=== PATIENT | female | born 1945 | race Hispanic/Latino ===

== ENCOUNTER 2018-07-12 05:00 | Observation (INO) | payer MEDICARE ==
--- NOTE | 2018-07-09 16:31 | Diagnostic Imaging Report ---
EXAMINATION: PA and lateral views of the chest. COMPARISON: None CLINICAL HISTORY: Preadmission, knee surgery DISCUSSION: Lines/tubes: None. Lungs: The lungs are well inflated and clear. No pneumonia or pulmonary edema. Pleura: No pleural effusion or pneumothorax. Heart and mediastinum: The cardiomediastinal silhouette is normal. Bones and soft tissues: No acute bony abnormalities. IMPRESSION: No acute cardiopulmonary abnormalities. Signed by: Dr. Jose Pardo M.D. on 07/09/2018 4:28 PM
[~2018-07-12] VITALS: Ht 157.5 cm; Wt 92.5 kg
[~2018-07-12 05:00] MED LIST: CIPRO500 MG PO; DICLOFENAC SODI50 MG PO; GABAPENTIN300 MG PO; LEVOTHYROXINE50 MCG PO; LISINOPRIL-HCT1 EAC2 PO; LOVASTATIN40 MG PO
--- OUTSIDE RECORDS SUMMARY | 2018-07-12 05:08 | XMS REPORT ---
Author Author [facility] Address Unknown Phone Unavailable Care Team Providers Care Financial Analysis Advisor Name Role Phone ANGI BOND Unavailable Unavailable Problems This patient has no known problems. Allergies, Adverse Reactions, Alerts This patient has no known allergies or adverse reactions. Medications This patient has no known medications. Results Test Description Test Time Test Comments Text Results Atomic Results Result Comments CHEST 2 VIEWS 2018-07-09 16:28:00 [place] [address] Patient Name: DALY RAMOS MR #: [id number] : 1945 Age/Sex: 72/F Req #: [id number] Adm Physician: Ordered by: ANGI BOND MD Report #: [id number] Location: OR Room/Bed: Procedure: [id number] DX/CHEST 2 VIEWS Exam Date: Exam Time: REPORT STATUS: Signed EXAMINATION: PA and lateral views of the chest. COMPARISON: None CLINICAL HISTORY: Preadmission, knee surgery DISCUSSION: Lines/tubes: None. Lungs: The lungs are well inflated and clear. No pneumonia or pulmonary edema. Pleura: No pleural effusion or pneumothorax. Heart and mediastinum: The cardiomediastinal silhouette is normal. Bones and soft tissues: No acute bony abnormalities. IMPRESSION: No acute cardiopulmonary abnormalities. Signed by: Dr. Socrates French M.D. on 07/09/2018 4:28 PM Dictated By: SOCRATES FRENCH MD [id number] Transcribed By: TITO on 07/09/181627 COPY TO: ANGI BOND MD
[2018-07-12] MEDS ORDERED: CELECOXIB 200 MG CAP ONE (05:38)
[2018-07-12] MEDS ORDERED: GABAPENTIN 300 MG CAP ONE (05:39)
[2018-07-12] MEDS ORDERED: CEFAZOLIN SOD 2 GM/D5W 50ML 50 ML IV ONE (05:39)
[2018-07-12] MEDS ORDERED: DEXAMETHASONE SOD PHOS 10 MG/1 ML VIAL ONE (05:39)
[2018-07-12] MEDS ORDERED: VANCOMYCIN HCL 1,000 MG ONE (06:20)
[2018-07-12] MEDS ORDERED: BACITRACIN 50,000 UNIT VIAL ONE (06:21)
[2018-07-12] MEDS ORDERED: TRANEXAMIC ACID 1,000 MG/10 ML ML ONE (06:21)
[2018-07-12] MEDS ORDERED: ROPIVACAINE 246.25 MG, EPINEPHRINE HCL 1:1000 1ML 0.5 MG, CLONIDINE HCL 0.08 MG, KETORO... INJ ONE ×5 (06:30)
[2018-07-12] MEDS ORDERED: SODIUM CHLORIDE 0.9% 500ML 500 ML ONE (06:40)
[2018-07-12] MEDS ORDERED: ZOLPIDEM TARTRATE 5 MG TAB PO PRN (08:30)
[2018-07-12] MEDS ORDERED: DOCUSATE SODIUM 100 MG CAP PO PRN (08:30)
[2018-07-12] MEDS ORDERED: ACETAMINOPHEN 650 MG SUPP PR PRN (08:30)
[2018-07-12] MEDS ORDERED: ONDANSETRON HCL INJ 2MG/ML 2ML 2 MG/ML VIAL IV PRN (08:30)
[2018-07-12] MEDS ORDERED: HYDROCODONE/APAP 5MG-325MG TAB PO PRN (08:30)
[2018-07-12] MEDS ORDERED: PROMETHAZINE HCL (IM) 25 MG/ML VIAL INJ PRN (08:30)
[2018-07-12] MEDS ORDERED: DIPHENHYDRAMINE HCL INJ 50 MG/ML VIAL IM/IV PRN (08:30)
[2018-07-12] MEDS: CELECOXIB 100 MG CAP PO SCH ×2 (09:00→16:49)
[2018-07-12] MEDS: ASPIRIN 325 MG TAB PO SCH ×2 (09:00→16:49)
--- NOTE | 2018-07-12 09:04 | Diagnostic Imaging Report ---
Right knee radiographs-2 views History: Post operative radiographs. Findings: Status post right total knee arthroplasty and patellar resurfacing with prosthetic components in anatomic alignment. Overlying soft tissue air and surgical skin eddy are present. No evidence of acute fracture. IMPRESSION: Status post right knee replacement in anatomic position. Signed by: Dr. Feliciano García MD on 07/12/2018 9:01 AM
--- NOTE | 2018-07-12 11:19 | NUR ---
Received patient from PACU at this time. Patient is awake, A&Ox3, but sleepy. Lung sounds clear, bowel sounds active. IV to L hand asymptomatic, intact, and patent. ELI hose to L leg, aniyah wrap around R leg. Foot pumps in place. Patient denies pain at this time. Patient oriented to room, call light, bed, phone. Bed locked in lowest position, 2 side rails up, call light in reach. Family members at bedside.
[2018-07-12 11:44] VITALS: BP 117/56
[2018-07-12 12:01] VITALS: BP 117/56
[2018-07-12 12:18] VITALS: BP 117/56
[2018-07-12] MEDS: ACETAMINOPHEN 1000 MG/100 ML IV SCH ×3 (12:54→23:55)
[2018-07-12] MEDS: SODIUM CHLORIDE 0.9% 1000ML 1,000 ML IV SCH ×2 (12:54→18:17)
[2018-07-12] MEDS ORDERED: CEFAZOLIN SOD 1 GM/NS 50ML 50 ML IV SCH (14:00)
--- NOTE | 2018-07-12 14:44 | NUR ---
Patient vomiting at this time and voided on herself as well. PRN antiemtic given. Patient cleansed at this time. Will continue to monitor
--- NOTE | 2018-07-12 15:43 | Operative Report ---
DATE OF PROCEDURE: 07/12/2018 SURGEON: Camacho Jin MD SHOP FOREMAN: Marcelino June, certified PA. PREOPERATIVE DIAGNOSIS: Osteoarthritis, right knee. POSTOPERATIVE DIAGNOSIS: Osteoarthritis, right knee. PROCEDURE: Right total knee arthroplasty. INDICATIONS: The patient is a 72-year-old lady with advanced osteoarthritis of the right knee. She has failed conservative management and would like to proceed with a right total knee replacement. The risks and benefits of the procedure have been discussed. She states she understands and wishes to proceed. PROCEDURE IN DETAIL: The patient was brought to the operating room and placed under general anesthetic. She received a regional block, prophylactic antibiotics and tranexamic acid in the holding area. Her right lower extremity was prepped and draped in a sterile manner. A preoperative time-out was performed. The extremity was exsanguinated and a proximal tourniquet was inflated to 300 mmHg. An anterior approach with a medial parapatellar arthrotomy was performed. Clear synovial fluid was removed from the joint. Soft tissue releases were performed to bring the knee up into flexion with the patella everted. Remnants of the cruciate ligaments were sacrificed. A Mehta and Nephew posterior stabilized legion knee system was used throughout the case. Marginal osteophytes and meniscal remnants were removed. The proximal tibia was resected using an extramedullary cutting guide. The cut was referenced off the medial compartment. The tibial base plate was a size #4. The central fin punch was impacted and the attention was directed towards the distal femur. An intramedullary cutting guide was used to resect the distal femur in 6 degrees of valgus and rotation referencing off a combination of landmarks including Austin line, the epicondylar axis and the posterior condyles. The femoral component was a size #5. The anterior and posterior cuts were made. Trial reductions were performed. A 9 mm ultracongruent tibial insert provided appropriate soft tissue balancing in full extension and 90 degrees of flexion. The patella was resurfaced with a 29 mm x 7.5 mm patellar button. The thickness was checked before and after and was right around 22 mm. Patellar tracking was noted to be concentric. The trial implants were then all removed. A 100 mL premixed pericapsular ED injection was placed into the surrounding soft tissue. The knee was thoroughly irrigated with a shower tip pulsatile lavage. The components were cemented into place using a single mix of Palacos cement preloaded with antibiotics. Care was taken to remove extravasated cement. The wound was further irrigated while the cement cured. 500 mg of vancomycin powder was sprinkled into the wound. Throughout the case as well, a mixture of diluted polymyxin and vancomycin spray was used. The arthrotomy was then closed with interrupted #1 Ethibond stitches. The knee was put through flexion and extension to ensure a secure closure. The skin was closed with subcuticular Vicryl and eddy. A sterile Aquacel bandage was then applied. The patient was extubated and transported to the recovery room in stable condition. Blood loss was minimal. All needle and sponge counts were correct. Camacho Jin MD DR/KAMERON /[id number]
--- NOTE | 2018-07-12 16:05 | NUR ---
CPM applied at this time, 50 degrees. Patient tolerated well. Patient reports some residual nausea, but does not feel like she will throw up. Emesis bag still at bedside. Told to call us if nausea increases.
[2018-07-12 16:30] VITALS: BP 102/50
[2018-07-12] MEDS: CEFAZOLIN SOD 1 GM/NS 50ML 50 ML IV SCH (16:49)
[2018-07-12] MEDS ORDERED: ONDANSETRON HCL INJ 2MG/ML 2ML 2 MG/ML VIAL ONE (17:31)
[2018-07-12] MEDS ORDERED: PROPOFOL IV EMULSION 10 MG/ML 20 ML VIAL ONE (17:31)
[2018-07-12] MEDS ORDERED: EPHEDRINE SULFATE INJ 50 MG/10 ML SYR ONE (17:31)
[2018-07-12] MEDS ORDERED: SEVOFLURANE INHAL SOLN 250 ML PEN BTL ONE (17:31)
[2018-07-12] MEDS ORDERED: LIDOCAINE HCL 2% LOCAL INJ 5 ML SDV VIAL INJ ONE (17:31)
[2018-07-12] MEDS ORDERED: DEXAMETHASONE SOD PHOS INJ 4 MG/ML VIAL ONE (17:31)
[2018-07-12] MEDS ORDERED: ROPIVACAINE 0.5% 5 MG/ML 30 ML SDV ONE (18:12)
[2018-07-12] MEDS ORDERED: LIDOCAINE 2%/ EPINEPHRINE 20ML MDV ONE (18:12)
[2018-07-12] MEDS ORDERED: MIDAZOLAM HCL 2 MG/2 ML VIAL ONE (19:12)
[2018-07-12] MEDS ORDERED: MORPHINE SULFATE INJ 10 MG/ML ONE (19:12)
[2018-07-12] MEDS ORDERED: FENTANYL CITRATE/PF 100MCG/2 ML INJ ONE (19:12)
--- NOTE | 2018-07-12 19:30 | NUR ---
Report taken fro am rn.Asessment done.no resp.distress.no pain voiced.assisted to use bed reid . pt voided .plexi pump is in place.dressing is dry and intact.bed alarm on.bed locked and in lowest position.phone and call light within reach.instructed to call for assistance as needed.
[2018-07-12 20:03] VITALS: BP 108/56
--- NOTE | 2018-07-12 20:30 | NUR ---
CPM APPLIED ON R.LG @50 DEGREE.PT TOLERATED WELL.
[2018-07-12 21:00] VITALS: BP 108/56
[2018-07-12] MEDS ORDERED: SIMVASTATIN 20 MG TAB PO SCH (21:00)
[2018-07-12] MEDS: HYDROCODONE/APAP 7.5MG-325MG 1 EA TAB PO PRN (22:29)
--- NOTE | 2018-07-12 22:30 | NUR ---
STOPPED USING CPM.PT TOLERATED WELL.
[2018-07-13] MEDS: CEFAZOLIN SOD 1 GM/NS 50ML 50 ML IV SCH ×2 (00:21→08:37)
[2018-07-13 00:41] VITALS: BP 100/54
[2018-07-13 04:00] VITALS: BP 92/54
[2018-07-13] MEDS: ACETAMINOPHEN 1000 MG/100 ML IV SCH (05:11)
[2018-07-13] MEDS: KETOROLAC TROMETHAMINE 30 MG/ML VIAL IV PRN ×2 (05:22→12:12)
[2018-07-13 05:49] LABS: HEMATOCRIT 33.2 % (34.2-44.1); HEMOGLOBIN 10.9 g/dL (12.0-16.0)
[2018-07-13] MEDS ORDERED: LEVOTHYROXINE SODIUM 25 MCG TABLET PO SCH (06:00)
--- NOTE | 2018-07-13 06:00 | NUR ---
CPM CONNECTED @5O DEGREE FLEXION.PT IS TOLERATING WELL.
--- NOTE | 2018-07-13 07:07 | NUR ---
Received patient in report this morning. CPM at 50 going at this time. No pain reported. No S&S of distress at this time.
--- NOTE | 2018-07-13 07:41 | NUR ---
Removed patient from CPM. Tolerated well. Patient transferred with walker to chair to eat breakfast, weightbearing as tolerated. Patient used Incentive Spirometer 10 times.
[2018-07-13 08:09] VITALS: BP 105/56
[2018-07-13] MEDS ORDERED: ACETAMINOPHEN 1000 MG/100 ML IV PRN (08:30)
[2018-07-13] MEDS: ASPIRIN 325 MG TAB PO SCH (08:37)
[2018-07-13] MEDS: CELECOXIB 100 MG CAP PO SCH (08:37)
[2018-07-13] MEDS: HYDROCODONE/APAP 7.5MG-325MG 1 EA TAB PO PRN (08:38)
[2018-07-13] MEDS ORDERED: HYDROCHLOROTHIAZIDE 25 MG TAB PO SCH (09:00)
[2018-07-13] MEDS ORDERED: LEVOTHYROXINE SODIUM 50 MCG TAB PO SCH (09:00)
[2018-07-13] MEDS ORDERED: LISINOPRIL 10 MG TAB PO SCH (09:00)
--- NOTE | 2018-07-13 09:00 | NUR ---
Patient is A&Ox3. Tolerated ambulating to bathroom well. Lung sounds clear. Bowel sounds active. Skin intact. ELI hose on both legs. Non-skid footwear on feet. R hand 20g IV asymptomatic, intact, and patent. Patient reports pain when ambulating that relieves when resting. No edema noted. Call light in reach. Will continue to monitor.
--- NOTE | 2018-07-13 10:18 | NUR ---
CASE MANAGEMENT ASSESSMENT Steerer to bedside to discuss plan of care with patient/family. CM/SW role and care transitions discussed. Anticipated discharge plan discussed along with duration of care. CM/SW discussed patients right to make decisions in care. CM/SW work hours given. Patient lives: with her and son Admit/Transfer: from PACU Hospital/ER visits since last admit: none; 1st hospitalization POA/Emergency contact: Mela Mcallister [phone] Current/Previous Home Health: none PCP/Follow-up Care: Dr. Marques is PCP; pt will follow up with Dr. Jin as instructed when he rounds today Current/Previous DME: has a cane at home DME was pre-arranged by Dr. Jin's office. Orders sent to [facility] [phone]. TEJIDNER called and spoke with Lupe who stated that everything has been authorized. They will contact pt for delivery. Pt was provided with a walker from the hospital for discharge. Medications (referring to index hospitalization or the first time you were in the hospital) a. Were changes made in your medications when you were in the hospital on [date of index hospitalization]? n/a b. Did you understand the changes? n/a c. Were you able to obtain your new medications right away? n/a d. Were you able to take your medications like the doctor wanted you to? n/a e. Did the hospital give you an accurate, easy to understand list of medications when you left? n/a Scale of 1-10 how comfortable does patient feel with disease management in outpatient setting: Other Services: none Employment Status: retired Areas of Concerns: s/p right knee arthroplasty Referral Needs: home health Order was sent by Dr. Jin's office to [facility] - will be thru their [facility] [phone] / F [phone]. TEJINDER called and spoke with Zabrina who stated that pt will be seen tomorrow. They will contact pt. Home health information was given to pt. CM instructed pt to call the [employer] health company if she does not hear from them. PT note and operative report was faxed to [facility]. Education Needs: post operative instructions IMM/TESFAYE given and signed (if applicable): TESFAYE explained to pt. She verbalized understanding. Signed copy placed in chart. Copy to pt. Goal for discharge: Home with home health today. CM/SW left business card at the bedside with contact information. Name and number was also written on the patients whiteboard. Patient verbalized understanding of discussion. CM will follow-up with ongoing discharge and transition of care needs.
[2018-07-13] MEDS ORDERED: ASPIRIN325 MG PO (11:09)
--- NOTE | 2018-07-13 11:32 | Consultation ---
DATE OF CONSULTATION: REASON FOR CONSULTATION: Postoperative medical management. HISTORY OF PRESENT ILLNESS: The patient is a 72-year-old lady status post right total knee arthroplasty for end-stage osteoarthritis. She is doing well postoperatively with minimal pain. REVIEW OF SYSTEMS: Denies any chest pain, fever, chills, nausea, vomiting, headache, shortness of breath, or dizziness. PAST MEDICAL HISTORY: Significant for high blood pressure and hypothyroidism. MEDICATIONS: See MAR. ALLERGIES: NONE. SOCIAL HISTORY: She is retired, nonsmoker, nondrinker. FAMILY HISTORY: High blood pressure. PHYSICAL EXAMINATION: HEENT: Temperature is 96.2, pulse 66, blood pressure and sats are 91% on room air. GENERAL: She is in no apparent distress, lying in bed. LUNGS: Clear to auscultation bilaterally. NECK: Supple. No lymphadenopathy. CARDIOVASCULAR: Regular rate and rhythm. ABDOMEN: Good bowel sounds. Soft, nontender, nondistended. EXTREMITIES: No clubbing or cyanosis. NEUROLOGIC: Nonfocal. ASSESSMENT AND PLAN: 1. Right knee pain. We will continue with physical therapy and pain control. 2. Anemia. Check a CBC. 3. Hypertension. Continue with her home medication. 4. Hyperlipidemia. Continue with her simvastatin. 5. Hypothyroidism. Continue with her medication. Please see hospital chart for full details. MD SANJEEV Khalil/KAMERON /[id number]
[2018-07-13 11:54] VITALS: BP 105/56
[2018-07-13 12:36] VITALS: BP 108/56
[2018-07-13] MEDS ORDERED: NORCO 7.5-3251 EACH PO (12:44)
--- NOTE | 2018-07-13 13:01 | NUR ---
L hand 20g IV removed at this time. Catheter tip intact. Pressure dressing applied.
--- NOTE | 2018-07-13 13:30 | NUR ---
Patient discharged home at this time via personal auto, with . Assisted by staff via wheelchair to front. Patient given discharge packet, including instructions about new prescriptions, continue all home meds, except ciprofloxacin. Told patient to hold diclofenac until follow up with dr, due to increased bleeding risk. Patient went home with walker. Dressing dry and in tact, instructed to leave dressing alone until follow up and that she can shower tomorrow. No heavy lifting. Weightbearing as tolerated. Patient verbalized understanding.
== END 2018-07-13 13:30 | disposition home health service (06) ==
LOC: OR 05:00 → PACU V 08:19 → MED/SURG 11:20
PROVIDERS: ADMIT Specialist; ATTEND Specialist
DX: M17.11 Unilateral primary osteoarthritis, right knee (principal); I10 Essential (primary) hypertension; E78.5 Hyperlipidemia, unspecified; E03.9 Hypothyroidism, unspecified; D64.9 Anemia, unspecified; Z01.811 Encounter for preprocedural respiratory examination
CPT/HCPCS: 27447; 36415; 71046; 73560; 85014; 85018; 86850; 86900; 86920; 97116; 97139; 97162; 97530 ×2; G0378 ×2; J0131 ×2; J0171; J0690 ×3; J1100 ×2; J1885 ×2; J2001 ×2; J2250; J2270; J2405; J2704; J2795; J3370; J7030; J7040